=== PATIENT | male | born 1970 | race Caucasian/White ===

== ENCOUNTER 2023-05-02 10:14 | Outpatient (RCR) | payer BC, SELFPAY | END 2023-05-02 10:20 | disposition home or self-care (01) | LOC: PT 10:14 | PROVIDERS: Visit Provider Nurse Practitioner | DX: L97.511 Non-pressure chronic ulcer of other part of right foot limited to breakdown of skin (principal) | CPT/HCPCS: 97140; 97163; 97597; 97598 ==

== ENCOUNTER → 2023-05-02 11:45 | Outpatient (CLI) | payer BC, SELFPAY ==
--- NOTE | 2023-05-02 11:47 | CA_ITS ---
FINAL REPORT TECHNIQUE: Multiple transverse and longitudinal images were performed of right the femoral-popliteal deep venous system with augmentation and compression maneuvers. CLINICAL HISTORY: HTN, obesity, hx of PE (2015), hx of DVT (2018), right toe ulcer/wound with cellulitis diagnosis x 3 weeks. Severe venous stasis RLE. Patient takes Coumadin daily. FINDINGS: Right lower extremity duplex ultrasound demonstrates normal flow in the deep venous system. There is no abnormal echogenicity to suggest thrombus. There is normal compression and augmentation. IMPRESSION: No evidence of right DVT. Reviewed, Interpreted and Dictated by Antelmo Rabago III, MD Transcribed by Eli Irene Authenticated and [facility]
== END ==
LOC: RT 11:45
PROVIDERS: PCP Pediatrics; Visit Provider Nurse Practitioner
DX: L97.511 Non-pressure chronic ulcer of other part of right foot limited to breakdown of skin (principal)
CPT/HCPCS: 93971